=== PATIENT | female | born 1945 | race Hispanic/Latino ===

== ENCOUNTER 2019-12-22 11:43 | Outpatient (CLI) | payer MEDICARE ==
--- NOTE | 2019-12-22 13:42 | RAD ---
RIGHT SHOULDER 3 VIEWS: Date: 12/22/2019 HISTORY: Acute right shoulder pain. FINDINGS/IMPRESSION: There are degenerative changes in the acromioclavicular joint. No acute fracture, dislocation, or bon y destruction is seen. There is calcification in the rotator cuff consistent with calcific tendinosis . POS: AH
== END 2019-12-22 11:44 | disposition home or self-care (01) ==
LOC: SCSRAD 11:43
PROVIDERS: ATTEND Nurse Practitioner Family
DX: M25.511 Pain in right shoulder (principal); M19.011 Primary osteoarthritis, right shoulder; M25.811 Other specified joint disorders, right shoulder

== ENCOUNTER 2020-01-12 15:03 | Outpatient (CLI) | payer MEDICARE ==
--- NOTE | 2020-01-12 15:39 | BD ---
EXAM: Bone densitometry using DEXA HISTORY: 74 yo female. Screening for postmenopausal osteoporosis FINDINGS: L1--bone mineral density 0.980 g/sq cm; T score -0.1 ; Z score 2.1 L2--bone mineral density 1.051 g/sq cm; T score 0.2 ; Z score 2.6 L3--bone mineral density 1.249 g/sq cm; T score 1.5 ; Z score 4.1 L4--bone mineral density 1.223 g/sq cm; T score 1.5 ; Z score 4.1 Total L1-L4--bone mineral density 1.133 g/sq cm; T score 0.8 ; Z score 2.2 Left femoral neck--bone mineral density0.655; T score -1.7 ; Z score 0.4 Total proximal left femur--bone mineral density 0.913; T score -0.2 ; Z score 1.6 IMPRESSION: Osteopenia
== END 2020-01-12 15:04 | disposition home or self-care (01) ==
LOC: BICMAMMO 15:03
PROVIDERS: ATTEND Student in an Organized Health Care Education/Training Program
DX: M81.0 Age-related osteoporosis without current pathological fracture (principal); M85.852 Other specified disorders of bone density and structure, left thigh
CPT/HCPCS: 77080

== ENCOUNTER 2022-03-21 16:02 | Outpatient (CLI) | payer MEDICARE | END 2022-03-21 16:03 | disposition home or self-care (01) | LOC: BICRAD 16:02 | PROVIDERS: ATTEND Student in an Organized Health Care Education/Training Program | DX: M79.605 Pain in left leg (principal) ==

== ENCOUNTER 2023-01-14 09:32 | Outpatient (CLI) | payer MEDICARE | END 2023-01-14 09:33 | disposition home or self-care (01) | LOC: BICRAD 09:32 | PROVIDERS: ATTEND Nurse Practitioner Family | DX: M25.532 Pain in left wrist (principal); M19.032 Primary osteoarthritis, left wrist; M85.822 Other specified disorders of bone density and structure, left upper arm; R93.7 Abnormal findings on diagnostic imaging of other parts of musculoskeletal system ==

== ENCOUNTER 2023-07-18 18:20 | Emergency (ER) | payer MEDICARE | END 2023-07-18 22:55 | disposition home or self-care (01) | LOC: ERS 18:20 | DX: M54.50 Low back pain, unspecified (principal); G89.29 Other chronic pain; M25.561 Pain in right knee; I10 Essential (primary) hypertension; E11.9 Type 2 diabetes mellitus without complications; Z87.891 Personal history of nicotine dependence | CPT/HCPCS: 73502; 73564; 80053; 81001; 85025; 86141; 96374; 96375; 99283; J3010; 36415; J2405 ==

== ENCOUNTER 2024-03-01 11:21 | Outpatient (CLI) | payer MEDICARE | END 2024-03-01 11:22 | disposition home or self-care (01) | LOC: SCSRAD 11:21 | PROVIDERS: ATTEND Family Medicine | DX: S19.9XXA Unspecified injury of neck, initial encounter (principal); M47.812 Spondylosis without myelopathy or radiculopathy, cervical region; M43.12 Spondylolisthesis, cervical region; M46.02 Spinal enthesopathy, cervical region | CPT/HCPCS: 72040 ==

== ENCOUNTER 2024-11-16 03:41 | Emergency (ER) | payer MEDICARE ==
[2024-11-16] MEDS ORDERED: Boostrix 0.5 ML (Tdap) VIAL (>/=7 yrs of age) ONE (04:32)
== END 2024-11-16 06:21 | disposition home or self-care (01) ==
LOC: ERS 03:41
DX: S02.2XXA Fracture of nasal bones, initial encounter for closed fracture (principal); S00.532A Contusion of oral cavity, initial encounter; I10 Essential (primary) hypertension; E11.9 Type 2 diabetes mellitus without complications; Z23 Encounter for immunization; Z87.891 Personal history of nicotine dependence; W06.XXXA Fall from bed, initial encounter
CPT/HCPCS: 70450; 70486; 72125; 90471; 90715